=== PATIENT | male | born 1940 | race Caucasian/White ===

== ENCOUNTER → 2017-06-18 | Outpatient (CLI) | payer MEDICARE | LOC: M LRY 09:35 | PROVIDERS: ATTEND Urology | DX: R35.0 Frequency of micturition (principal) | CPT/HCPCS: 36415; G0103 ==

== ENCOUNTER → 2018-06-30 | Outpatient (CLI) | payer MEDICARE ==
[2018-06-30 11:50] LABS: PROSTATIC SPECIFIC AG MONITOR 11.4 NG/ML (< 4.0)
== END ==
LOC: M LRY 10:26
DX: R35.0 Frequency of micturition (principal)
CPT/HCPCS: 84153

== ENCOUNTER → 2019-06-23 | Outpatient (CLI) | payer MEDICARE ==
[2019-06-24 14:16] LABS: PSA TOTAL 10.4 ng/mL (0.0-4.0)
== END ==
LOC: M LRY 09:40
PROVIDERS: ATTEND Urology
DX: R97.20 Elevated prostate specific antigen [PSA] (principal)